=== PATIENT | female | born 1970 | race Two or more races ===

== ENCOUNTER 2016-12-01 12:52 | Observation (INO) | payer OTHER ==
--- NOTE | 2016-12-01 13:24 | CPEKG ---
Heart Rate: 81 RR Interval: 741 P-R Interval: 136 QRSD Interval: 72 QT Interval: 396 QTC Interval: 460 P Wilmot: 20 QRS Wilmot: 25 T Wave Wilmot: 26 EKG Severity - NORMAL ECG - EKG Impression: SINUS RHYTHM Electronically Signed By: Chico Burden 01-Dec-2016 15:21:46
[2016-12-01 13:26] LABS: % IMMATURE GRANULYOCYTES 0.3 % (0.0-1.1); ABSOLUTE IMMATURE GRANULOCYTES 0.02 10^3/uL (0.00-0.10); ADD DIFF? NO; ADD MORPH? NO; ADD SCAN? NO; ATYPICAL LYMPHOCYTE FLAG 0 (0-99); FRAGMENT RBC FLAG 20 (0-99); HEMOGLOBIN 10.4 g/dL (12.6-16.3); LEFT SHIFT FLG 0 (0-99); LIPEMIA HEMOLYSIS FLAG 80 (0-99); MEAN CELL HEMOGLOBIN 22.5 pg (27.9-34.1); MEAN CELL HEMOGLOBIN CONCENTR. 30.6 g/dL (32.4-36.7); MEAN CELL VOLUME 73.6 fL (81.5-99.8); MEAN PLATELET VOLUME 10.6 fL (8.7-11.7); PLATELET CLUMPS FLAG 0 (0-99); PLATELET COUNT 306 10^3/uL (150-400); RED BLOOD CELL COUNT 4.62 10^6/uL (4.18-5.33); RED CELL DISTRIBUTION WIDTH 19.2 % (11.5-15.2)
--- NOTE | 2016-12-01 13:29 | UCPHY ---
H & P Time Seen by Provider: 12/01/16 13:29 Patient Type: Established HPI/ROS: Chief complaint. Numbness HPI. 46-year-old female with 3 day history of swelling to the neck. Yesterday the left side of her head became numb. This morning both arms became numb left greater than right. Both legs are involved as well. She has a headache. She has pressure in her chest but no shortness of breath. She has sore throat and trouble eating. No similar symptoms previously. ROS Constitutional. no fever/chills, no weakness Eyes. no problems with vision ENT. Sore throat Cardiovascular. Chest pressure Respiratory. no shortness of breath, no cough Abdominal. no abdominal pain, no nausea/vomiting, no diarrhea . no problems urinating MS. no calf pain/swelling, no neck/back pain, no joint pain Skin. no rash Lymph. no swollen glands Neuro. Headache and difficulty walking with numbness and weakness to arms and legs left side greater than right Past Medical/Surgical History: Untreated dyslipidemia Social History: , nonsmoker, no alcohol Smoking Status: Never smoked Physical Exam: General Appearance: Alert well-developed female mild distress vital signs are stable Eyes: Pupils equal and round no pallor or injection. ENT, pharynx with mild injection. No exudate. There is no stridor Respiratory: There are no retractions, lungs are clear to auscultation. Cardiovascular: Regular rate and rhythm. Gastrointestinal: Abdomen is soft and nontender, no masses, bowel sounds normal. Neurological: Awake and alert, sensory and motor exams grossly normal. Speech is normal. Cranial nerves are normal. There is no pronator drift. Finger-to- nose is basically normal though may be slightly ataxic with left index finger. [id number] is normal bilateral Skin: Warm and dry, no rashes. Musculoskeletal: Neck is supple nontender. Extremities symmetrical, full range of motion. Psychiatric: Patient is oriented X 3, there is no agitation. Constitutional: Initial Vital Signs Temperature (C) 36.8 C 12/01/16 13:02 Heart Rate 76 12/01/16 13:02 Respiratory Rate 16 12/01/16 13:02 Blood Pressure 156/90 H 12/01/16 13:02 O2 Sat (%) 99 12/01/16 13:02 O2 Delivery Mode Room Air Allergies/Adverse Reactions: No Known Allergies Allergy (Verified 12/01/16 13:07) Home Medications: Medication Instructions Recorded NK [No Known Home Meds] 07/09/16 Medical Decision Making - Diagnostics EKG Interpretation: EKG interpreted by me shows normal sinus rhythm with normal interval and axis. QRS is normal there is no significant ST elevation or depression. There is no arrhythmia. The rate is 81 Imaging: Imaging Impressions Chest X-Ray 12/01/16 13:41 Impression: Negative. Head CT 12/01/16 13:41 Impression: Normal brain. No acute intracranial hemorrhage or evidence of ischemia. Findings discussed with Emergency Department physician, Chico Burden, on December 01, 2016 at 2:[address] reviewed by me and discussed with Dr. Chan is interpreted by us as normal One-view chest x-ray interpreted by me is normal Procedures: IV normal saline, monitor ED Course/Re-evaluation: On re-evaluation patient remains stable. However her symptoms continue. The patient and family and I discussed imaging and lab results. We discussed treatment plan including criteria for return importance of follow-up further evaluation and recommendation today for admission. They expressed understanding I consulted and discussed case with Dr. Edge, hospitalist, who agrees to the admission Differential Diagnosis: Certainly patient's symptoms are worrisome for TIA and CVA. She will be admitted. I have considered otherwise infection, electrolyte abnormalities, acute coronary syndrome - Data Points Laboratory Results: Laboratory Results 12/01/16 13:20 12/01/16 13:20 12/01/16 12/01/16 12/01/16 13:20 13:20 13:20 WBC RBC Hgb Hct MCV MCH MCHC RDW Plt Count MPV Neut % (Auto) Lymph % (Auto) Mcdonough % (Auto) Eos % (Auto) Baso % (Auto) Nucleat RBC Rel Count Absolute Neuts (auto) Absolute Lymphs (auto) Absolute Monos (auto) Absolute Eos (auto) Absolute Basos (auto) Absolute Nucleated RBC Immature Gran % Immature Gran # PT 11.5 SEC L SEC (12.0-15.0) INR 0.87 (0.83-1.16) Sodium 140 mEq/L mEq/L (134-144) Potassium 3.6 mEq/L mEq/L (3.5-5.2) Chloride 103 mEq/L mEq/L (97-110) Carbon Dioxide 23 mEq/l mEq/l (22-31) Anion Gap 14 mEq/L mEq/L (8-16) BUN 8 mg/dL mg/dL (7-23) Creatinine 0.6 mg/dL mg/dL (0.6-1.0) Estimated GFR > 60 Glucose 88 mg/dL mg/dL (70-100) Calcium 8.7 mg/dL mg/dL (8.5-10.4) Troponin I < 0.012 ng/mL ng/mL (0-0.034) 12/01/16 13:20 WBC 6.45 10^3/uL 10^3/uL (3.80-9.50) RBC 4.62 10^6/uL 10^6/uL (4.18-5.33) Hgb 10.4 g/dL L g/dL (12.6-16.3) Hct 34.0 % L % (38.0-47.0) MCV 73.6 fL L fL (81.5-99.8) MCH 22.5 pg L pg (27.9-34.1) MCHC 30.6 g/dL L g/dL (32.4-36.7) RDW 19.2 % H % (11.5-15.2) Plt Count 306 10^3/uL 10^3/uL (150-400) MPV 10.6 fL fL (8.7-11.7) Neut % (Auto) 56.4 % % (39.3-74.2) Lymph % (Auto) 34.1 % % (15.0-45.0) Mcdonough % (Auto) 6.8 % % (4.5-13.0) Eos % (Auto) 1.9 % % (0.6-7.6) Baso % (Auto) 0.5 % % (0.3-1.7) Nucleat RBC Rel Count 0.0 % % (0.0-0.2) Absolute Neuts (auto) 3.64 10^3/uL 10^3/uL (1.70-6.50) Absolute Lymphs (auto) 2.20 10^3/uL 10^3/uL (1.00-3.00) Absolute Monos (auto) 0.44 10^3/uL 10^3/uL (0.30-0.80) Absolute Eos (auto) 0.12 10^3/uL 10^3/uL (0.03-0.40) Absolute Basos (auto) 0.03 10^3/uL 10^3/uL (0.02-0.10) Absolute Nucleated RBC 0.00 10^3/uL 10^3/uL (0-0.01) Immature Gran % 0.3 % % (0.0-1.1) Immature Gran # 0.02 10^3/uL 10^3/uL (0.00-0.10) PT INR Sodium Potassium Chloride Carbon Dioxide Anion Gap BUN Creatinine Estimated GFR Glucose Calcium Troponin I Departure - Departure Disposition: [facility] Inpatient Acute Clinical Impression: CVA (cerebral vascular accident) Qualifiers: CVA mechanism: unspecified Qualified Code(s): I63.9 - Cerebral infarction, unspecified Condition: Fair - PQRS PQRS Measurement: 134: Depression screening and followup, PRIME MD-PHQ2 (12 years and older) Over the last 2 weeks, how often have you been bothered by any of the following problems? 1. Feeling down, depressed, or hopeless? 2. Little interest or pleasure in doing things? Patient answered no to both 1 and 2 130: Documentation of medications. Reviewed all patient medications, doses, route and frequency. 226: Do you smoke? No.
[2016-12-01 13:41] LABS: ANION GAP 14 mEq/L (8-16); CALCIUM 8.7 mg/dL (8.5-10.4); CARBON DIOXIDE 23 mEq/l (22-31); CHLORIDE 103 mEq/L (97-110); CREATININE 0.6 mg/dL (0.6-1.0); GLOMERULAR FILTRATION RATE > 60; GLUCOSE 88 mg/dL (70-100); POTASSIUM 3.6 mEq/L (3.5-5.2); SODIUM 140 mEq/L (134-144)
[2016-12-01 13:49] LABS: INR 0.87 (0.83-1.16); PROTIME(PATIENT) 11.5 SEC (12.0-15.0)
[2016-12-01 16:19] VITALS: RESP 16
[2016-12-01] MEDS ORDERED: NS 1,000 ML IV SCH (18:00)
--- NOTE | 2016-12-01 18:29 | GHP ---
[f rep st] HISTORY AND PHYSICAL DATE OF ADMISSION: 12/01/2016 CHIEF COMPLAINT: Multiple complaints. HISTORY OF PRESENT ILLNESS: This is a 46-year-old female who presents with multiple chief complaint s. It seems as though she has been having left-sided arm numbness as well as some left lower leg pa resthesias for about 3 months. These are off and on. She occasionally gets these symptoms on her r ight hand, but they are predominantly left. She notes that over the past 3 days she has felt some s welling in her bilateral neck and she feels somewhat confused and dizzy. She notes that her left gutierrez nd hurts as well. She has not really had a headache. No neck pain. She has had some nausea but no vomiting. No diarrhea. No abdominal pain. She has intermittent chest discomfort. PAST MEDICAL/SURGICAL HISTORY: 1. Pre diabetes. 2. Hyperlipidemia. MEDICATIONS: None. ALLERGIES: No known drug allergies. SOCIAL HISTORY: She does not drink or smoke. She speaks Tristanian only; her daughter is present and has translated. FAMILY HISTORY: Her mother had coronary artery disease as well as a stroke. REVIEW OF SYSTEMS: A 10-point review of systems is conducted and is negative except per HPI. PHYSICAL EXAMINATION: VITAL SIGNS: Blood pressure 147/93, heart rate 71, respiration rate 16, satt ing 97% on room air, temperature is 36.7. GENERAL: The patient is a mildly ill-appearing female, wh o is not in any significant distress. HEENT: Normocephalic atraumatic. NECK: No meningismus. CAR DIOVASCULAR: A regular rate and rhythm. No murmurs, rubs, or gallops. Pulses are equal and symmet ranjit in the radial as well as dorsalis pedis. PULMONARY: Lungs clear to auscultation bilaterally. ABDOMEN: Soft, nontender, nondistended. SKIN: No rash. : No Gil. NEUROLOGIC: Alert and or iented x3. Cranial nerves 2-12 are intact. Subjective sensation to light touch is slightly decreas ed in the left upper and lower extremities. Motor is slightly decreased in the left upper extremity but almost equal. PSYCHIATRIC: Normal mood and affect. LABORATORY DATA: Basic metabolic panel is normal. INR is normal. Hemoglobin is 10.4. DATA: 1. I discussed this with Dr. Burden in the emergency department. 2. I reviewed her head CT; this shows a normal brain with nothing acute. 3. Chest x-ray, which I personally viewed and interpreted, shows normal heart size; nothing acute. 4. EKG, which I personally viewed and interpreted, shows sinus rhythm. IMPRESSION/PLAN: A 46-year-old healthy female presents with a constellation of symptoms that do not seem to have any clear single etiology. 1. Left-sided numbness/paresthesias: These are new symptoms for her. Not completely consistent wi th a cerebrovascular accident; however, I think it is reasonable to order an MRI of her brain at thi s point. This has been ordered. I will also check lipids. 2. Constellation of symptoms: I do not see any clear diagnosis for these. I have ordered a full s et of labs, including electrolytes, liver function tests, and inflammatory markers. At this point, I do not think I will work up all of her symptoms individually, including swelling in her neck which I do not appreciate, intermittent chest discomfort, feeling that her head is swollen. Will check a TSH. 3. Hyperlipidemia: She is not on medicines. I will check her lipids. /[id number]/MODL
[2016-12-01 20:28] VITALS: BP 137/86; PULSE 84; TEMP 98.3; O2SAT 96
[2016-12-01] MEDS: ASPIRIN 81 MG CHEWABLE TAB PO SCH (20:32)
[2016-12-01 23:37] LABS: SEDIMENTATION RATE 10 MM/HR (0-20)
[2016-12-01 23:45] LABS: ALANINE AMINOTRANSFERASE 26 IU/L (9-52); ALBUMIN 3.9 g/dL (3.5-5.0); ALKALINE PHOSPHATASE 91 IU/L (38-126); ASPARTATE AMINOTRANSFERASE 22 IU/L (14-46); BILIRUBIN,TOTAL 0.4 mg/dL (0.1-1.4); BILIRUBIN-CONJUGATED 0.3 mg/dL (0.0-0.5); BILIRUBIN-UNCONJUGATED 0.1 mg/dL (0.0-1.1); CHOLESTEROL 230 mg/dL (140-200); CHOLESTEROL/HDL RATIO 5.75 RATIO (1.00-4.44); HIGH DENSITY LIPOPROTEIN 40 mg/dL (40-95); LDL/HDL RATIO 3.13 RATIO (1.00-3.22); LOW DENSITY LIPOPROTEIN 125 mg/dL (70-100); MAGNESIUM 1.9 mg/dL (1.6-2.3); NON-HIGH DENSITY LIPOPROTEIN 190 mg/dL (90-129); TOTAL PROTEIN 7.3 g/dL (6.3-8.2); TRIGLYCERIDE 326 mg/dL (35-135); VERY LOW DENSITY LIPOPROTEINS 65 mg/dL (8-25)
[2016-12-02] MEDS ORDERED: ACETAMINOPHEN 325 MG TAB PO PRN (03:05)
[2016-12-02 06:16] LABS: % IMMATURE GRANULYOCYTES 0.2 % (0.0-1.1); ABSOLUTE IMMATURE GRANULOCYTES 0.01 10^3/uL (0.00-0.10); ADD DIFF? NO; ADD MORPH? NO; ADD SCAN? NO; ATYPICAL LYMPHOCYTE FLAG 0 (0-99); FRAGMENT RBC FLAG 20 (0-99); HEMOGLOBIN 9.7 g/dL (12.6-16.3); LEFT SHIFT FLG 0 (0-99); LIPEMIA HEMOLYSIS FLAG 80 (0-99); MEAN CELL HEMOGLOBIN 22.9 pg (27.9-34.1); MEAN CELL HEMOGLOBIN CONCENTR. 30.3 g/dL (32.4-36.7); MEAN CELL VOLUME 75.5 fL (81.5-99.8); MEAN PLATELET VOLUME 10.9 fL (8.7-11.7); PLATELET CLUMPS FLAG 20 (0-99); PLATELET COUNT 269 10^3/uL (150-400); RED BLOOD CELL COUNT 4.24 10^6/uL (4.18-5.33)
[2016-12-02 06:58] LABS: ANION GAP 8 mEq/L (8-16); CALCIUM 7.8 mg/dL (8.5-10.4); CARBON DIOXIDE 19 mEq/l (22-31); CHLORIDE 112 mEq/L (97-110); CREATININE 0.5 mg/dL (0.6-1.0); GLOMERULAR FILTRATION RATE > 60; GLUCOSE 91 mg/dL (70-100); POTASSIUM 4.1 mEq/L (3.5-5.2); SODIUM 139 mEq/L (134-144)
[2016-12-02] MEDS: ASPIRIN 81 MG CHEWABLE TAB PO SCH (09:19)
--- NOTE | 2016-12-02 12:56 | GDS ---
[f rep st] DISCHARGE SUMMARY DISCHARGE DIAGNOSES: 1. Numbness and paresthesia of her left middle finger and left middle toe. 2. Full headed sensation. 3. Hyperlipidemia. 4. Suspected depression. 5. Prediabetes. HISTORY OF PRESENT ILLNESS: A 46-year-old female with a history of prediabetes and hyperlipidemia, who presents with a constellation of unusual symptoms, for details of patient's initial presentation , please see the history and physical dated 12/01/2016. CONSULTATIVE SERVICES: None. PROCEDURES: 12/01/2016, patient had a noncontrast CT of the head, showed no acute findings. 017, patient had an MRI of the brain that showed no finding suggestive of acute cortical ischemia. Some white matter changes consistent with small-vessel disease. HOSPITAL COURSE: By issue: 1. The patient had focal complaints of paresthesia or numbness, and distributions that did not kirsty espond to any specific vascular area. She was admitted for observation, had laboratories checked, m onitored neurologically overnight, with normal brain imaging. After discussion with the patient and her family, I have some suspicion the patient may have some underlying depression and/or anxiety. We have recommended the patient log her symptoms, time of day and the environment with which those e xperiences are happening, so that her primary care provider has more information to work off of. We did not initiate any new medications at this time. 2. Hyperlipidemia. Patient does have borderline high LDL, we reviewed a low cholesterol diet. 3. Normocytic anemia. Iron studies have been sent and are pending at the time of her disposition. She should follow at the [facility] for followup. MEDICATIONS AT THE TIME OF DISPOSITION: Please reference medication reconciliation printed on 12/02. FOLLOWUP APPOINTMENTS: Include with her PCP at [facility] in the next 2-3 weeks for her first followup appointment, to address both her neurologic symptoms, and her iron studies. PENDING STUDIES: At the time of this dictation, include iron studies, which are pending at the time of her discharge. I spent greater than 30 minutes on the planning and coordination of this discharge. /[id number]/MODL
[2016-12-02 14:28] LABS: C-REACTIVE PROTEIN 6.1 mg/L (<10.0)
[2016-12-02 14:33] LABS: % SATURATION 5 % (20-55); TOTAL IRON BINDING CAPACITY 445 ug/dL (260-490)
[2016-12-02 15:00] LABS: FERRITIN - BCH 4.9 ng/mL (6.2-264.0)
== END 2016-12-02 10:45 | disposition home or self-care (01) ==
LOC: CED 12:52 → CEDHOLD 15:01 → F1N 17:04
PROVIDERS: ADMIT Student in an Organized Health Care Education/Training Program; ATTEND Hospitalist
DX: R20.2 Paresthesia of skin (principal); R20.0 Anesthesia of skin; E78.5 Hyperlipidemia, unspecified; D64.9 Anemia, unspecified
CPT/HCPCS: 70450-PO; 71010-PO; 80048-PO; 84484-PO; 85025-PO; 85610-PO; 85652-PO; 93010-PO; 99215-PO; G0378; G0463-PO

== ENCOUNTER 2018-08-18 10:31 | Emergency (ER) | payer SELFPAY ==
--- NOTE | 2018-08-18 11:19 | EDPHY ---
H & P Stated Complaint: st Time Seen by Provider: 08/18/18 11:06 HPI/ROS: CHIEF COMPLAINT: "I think I have the flu" HISTORY OF PRESENT ILLNESS: 48-year-old immunocompetent female with no influenza vaccination complaining of less than 4 hr of flu-like symptoms, including, sore throat, fever, chills, myalgia, nonproductive cough, dyspnea, headache. No urinary complaints. No flank pain. No nuchal rigidity. No no dyspnea. No chest pain. PRIMARY CARE PROVIDER:[facility] REVIEW OF SYSTEMS: 10 systems reviewed and negative with the exception of the elements mentioned in the history of present illness PAST MEDICAL & SURGICAL HISTORY: no influenza vaccination . No history of coronary artery disease. SOCIAL HISTORY: Nonsmoker. No illicit drug use. No cocaine use. FAMILY HISTORY: No family history of premature coronary artery disease or sudden unexplained or vasculopathy PHYSICAL EXAM (Prior to examination, patient consented to physical exam, hands were washed and my usual and customary physical exam procedures followed) 1) GENERAL: Well-developed, well-nourished, alert and oriented. Appears nontoxic. 2) HEAD: Normocephalic, atraumatic 3) HEENT: Pupils equal, round, reactive to light bilaterally. Sclera anicteric. Nasopharynx, oropharynx, clear, no lesions. No posterior oropharyngeal erythema or tonsillar enlargement or exudate. Moist Mucous membranes. Ears bilaterally with normal tympanic membranes. 4) NECK: Full range of motion, no meningeal signs. 5) LUNGS: Clear auscultation bilaterally, no wheezes, no rhonchi, no retractions. 6) HEART: Regular rate and rhythm, no murmur, no heave, no gallop. 7) ABDOMEN: No guarding, no rebound, no focal tenderness, negative McBurney's, negative Ardon's, negative Rovsing's, negative peritoneal sign, 8) MUSCULOSKELETAL: Moving all extremities, no focal areas of tenderness, no obvious trauma. No peripheral edema or discoloration. 9) BACK: No CVA tenderness, no midline vertebral tenderness, no fluctuance, no step-off, no obvious trauma, no visual or palpable abnormality. 10) SKIN: No rash, no petechiae. 11) Psychiatric: Patient is oriented X 3, there is no agitation. 12) NEURO: Awake, alert, and oriented to person, place and time. Answers questions appropriately. There were no obvious focal neurologic abnormalities. No cerebellar dysfunction. Cranial nerves 2 through to 12 intact. Normal steady gait. Upper and lower extremities bilaterally with strength 5 / 5, reflexes 2+. DIFFERENTIAL DIAGNOSIS: In no particular order including but not limited to pneumonia, bronchitis, influenza, meningitis - Personal History Current Tetanus/Diphtheria Vaccine: Unsure Current Tetanus Diphtheria and Acellular Pertussis (TDAP): Unsure - Medical/Surgical History Hx Asthma: No Hx Chronic Respiratory Disease: No Hx Diabetes: No Hx Cardiac Disease: No Hx Renal Disease: No Hx Cirrhosis: No Hx Alcoholism: No Hx HIV/AIDS: No Hx Splenectomy or Spleen Trauma: No Other PMH: med hx-cholesterol untreated, PRE DIABETES. surg-none - Social History Smoking Status: Never smoked Constitutional: Initial Vital Signs Temperature (C) 36.7 C 08/18/18 10:40 Heart Rate 94 08/18/18 10:40 Respiratory Rate 16 08/18/18 10:40 Blood Pressure 94/66 L 08/18/18 10:40 O2 Sat (%) 100 08/18/18 10:40 O2 Delivery Mode Room Air Allergies/Adverse Reactions: No Known Allergies Allergy (Verified 08/18/18 10:40) Home Medications: Medication Instructions Recorded Acetaminophen [Tylenol 325mg (*)] 650 mg PO PRN PRN 12/01/16 Multivitamins [Multivitamin (*)] 1 each PO DAILY 12/01/16 Ibuprofen 08/18/18 Medical Decision Making - Diagnostics Imaging Results: Imaging Impressions Chest X-Ray 08/18/18 11:13 Impression: Clear lungs. No pneumonia or effusion. Images reviewed myself ED Course/Re-evaluation: 11:19 a.m.: I have examined the patient. No history of influenza vaccination. She describes sudden onset flu-like symptoms without chest pain, without neurologic deficits a nonfocal neurologic exam. Negative perc score, low pretest suspicion for pulmonary embolus. Will check a chest x-ray, influenza testing and re-evaluate. Care of patient under supervision of secondary supervising physician Dr Fox with whom I discussed case. 1:20 p.m.: Influenza testing is negative. Chest x-ray shows no focal infiltrates. Re-evaluated. Resting comfortably. Breathing comfortably, maintaining normal saturations. I reviewed her old medical records which include hospitalization in 2017 for paresthesia and full headed sensation thought to be possibly secondary to depression and/or anxiety. At this time she has no evidence of CVA. Doubt MO. Abdomen re-examined, soft no guarding no rebound, no CVA tenderness bilaterally, no nuchal rigidity. Doubt meningitis. Doubt pneumonia. We discussed supportive care in the form of Tylenol, Motrin. At this time I do not think that further diagnostic studies are indicated. - Data Points Laboratory Results: 08/18/18 08/18/18 08/18/18 Unknown 11:24 11:20 Nasal Influenza A PCR NEGATIVE FOR FLU A REJ (NEGATIVE) Nasal Influenza B PCR NEGATIVE FOR FLU B REJ (NEGATIVE) Group A Strep Screen NEGATIVE (NEGATIVE) Group A Strep DNA Pending Departure - Departure Disposition: Home, Routine, Self-Care Clinical Impression: Flu-like symptoms Condition: Good Instructions: Viral Syndrome (ED) Additional Instructions: Return to the emergency department immediately for change in breathing habits, change in voice, change in swallowing habits, change in mental status, or any other symptoms that concern you. Infeccin de las vas respiratorias superiores Regrese a la walter de emergencia de inmediato si siente fiebre/escalofros, dificultad para respirar, dolor abdominal, incapacidad de tolerar la ingestin oral u otros sntomas que le preocupan. Adult Pain & Fever Control: We recommend Acetaminophen (Tylenol) and Ibuprofen (Motrin,Advil) for pain and fever control. When fever is high or pain severe, both drugs can be used at the same time, but at different intervals. Please note the time differences. Your dose is: Acetaminophen 650mg every 4 to 6 hours Ibuprofen 600mg every 6 hours with food OR Note: do not take Acetaminophen with Hydrocodone (Vicodin, Lortab) or Oycodone (Percocet). These medications also contain Acetaminophen. No more than 3000mg of Acetaminophen should be taken in 24 hours (for an adult). Referrals: [facility],. [Clinic] - 2-3 days, call for appt. Print Language: Bengali
[2018-08-18] MEDS ORDERED: ACETAMINOPHEN 500 MG TAB PO ONE (13:21)
[2018-08-18] MEDS ORDERED: IBUPROFEN 800 MG TAB PO ONE (13:21)
[2018-08-18 13:54] VITALS: BP 100/54
== END 2018-08-18 14:18 | disposition home or self-care (01) ==
DX: J02.9 Acute pharyngitis, unspecified (principal); R50.9 Fever, unspecified; R06.00 Dyspnea, unspecified; M79.10 Myalgia, unspecified site; R51 Headache; R05 Cough; D84.9 Immunodeficiency, unspecified